=== PATIENT | female | born 1995 ===

== ENCOUNTER 2017-03-20 00:27 | Emergency (ER) | payer OTHER ==
[2017-03-20 00:36] VITALS: BP 102/63; PULSE 64; RESP 16; TEMP 98.2; O2SAT 100
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
== END 2017-03-20 02:37 | disposition home or self-care (01) ==
LOC: H.ER 00:27
DX: H57.8 Other specified disorders of eye and adnexa (principal)

== ENCOUNTER 2017-04-15 20:23 | Observation (INO) | payer OTHER ==
[2017-04-15] MEDS ORDERED: Dextrose 5%/Lactated Ringer's 1,000 ML IV SCH (21:00)
[2017-04-15] MEDS ORDERED: Lactated Ringer's 1,000 ML IV STA (21:00)
--- NOTE | 2017-04-15 21:18 | ED PDOC ---
HPI: Chest Pain Time Seen by Provider: 04/15/17 20:36 Chief Complaint (Nursing): Chest Pain Chief Complaint (Provider): Near syncope and chest pain History Per: Patient History/Exam Limitations: no limitations Onset/Duration Of Symptoms: Hrs (7) Current Symptoms Are (Timing): Better Severity: Mild Quality: "Pain" Modifying Factors: None Additional History Per: Patient Additional Complaint(s): 21 y/o female here this evening for near syncope and chest pain x7 hours. She reports that on the onset of pain she was taken to [facility] where she had labs, and was offered admission but she refused as it was too far from her home. Now she is here for further evaluation as she continues to have chest pain that is intermittent, as well as lightheadedness. No vision changes, or focal weakness. She has had a small sandwich, but nothing else today. Denies feeling hungry. She reports that she is under a significant amount of stress at work. PMD: Dr. Alas Past Medical History Reviewed: Historical Data, Nursing Documentation, Vital Signs Vital Signs: Last Vital Signs Temp 98.1 F 04/16/17 08:00 Pulse 62 04/16/17 09:00 Resp 14 04/16/17 09:00 BP 104/63 04/16/17 08:00 Pulse Ox 100 04/16/17 09:00 - Medical History PMH: Anemia Denies: Chronic Kidney Disease - Surgical History Surgical History: No Surg Hx - Family History Family History: States: Unknown Family Hx - Social History Current smoker - smoking cessation education provided: Yes Alcohol: None Drugs: Denies - Home Medications Home Medications: Ambulatory Orders Medication Instructions Recorded No Known Home Med 04/15/17 - Allergies Allergies/Adverse Reactions: Allergies Allergy/AdvReac Type Severity Reaction Status Date / Time No Known Allergies Allergy Verified 04/15/17 20:30 Review of Systems ROS Statement: Except As Marked, All Systems Reviewed And Found Negative (and as per HPI) Cardiovascular: Positive for: Chest Pain, Light Headedness Neurological: Positive for: Dizziness. Negative for: Confusion, Seizures, Altered Mental Status Physical Exam - Reviewed Nursing Documentation Reviewed: Yes Vital Signs Reviewed: Yes - Physical Exam Appears: Positive for: Non-toxic, No Acute Distress Head Exam: Positive for: ATRAUMATIC, NORMOCEPHALIC Skin: Positive for: Warm, Dry, Pallor Eye Exam: Positive for: EOMI, PERRL. Negative for: Nystagmus ENT: Negative for: Pharyngeal Erythema, Tonsillar Exudate Neck: Positive for: Painless ROM, Supple Cardiovascular/Chest: Positive for: Chest Non Tender, Bradycardia (regular rhythm) Respiratory: Positive for: Normal Breath Sounds. Negative for: Rales, Rhonchi, Wheezing Gastrointestinal/Abdominal: Positive for: Soft. Negative for: Tenderness, Distended Back: Positive for: Normal Inspection. Negative for: Vertebral Tenderness Extremity: Positive for: Normal ROM. Negative for: Pedal Edema, Deformity Lymphatic: Negative for: Adenopathy Neurologic/Psych: Positive for: Alert, resident manager II-XII (intact), Oriented (x3), Cerebellar Tests (normal). Negative for: Motor/Sensory Deficits, Aphasia, Facial Droop - Laboratory Results Result Diagrams: 04/16/17 04:45 04/16/17 04:45 - ECG ECG: Positive for: Interpreted By Me, Viewed By Me ECG Rhythm: Positive for: Normal QRS, Normal ST Segment, Sinus Rhythm (67) O2 Sat by Pulse Oximetry: 100 (RA) Pulse Ox Interpretation: Normal Medical Decision Making Medical Decision Making: Impression: Near Syncope Reviewed labs performed at [facility], which included ddimer. Pt demonstrated mild anemia and ketones in UA. No emergently significant lab abnormalities. Persistent near syncopal symptoms despite rest and PO intake. Will hospitalize for further management. IVF ordered. Plan: - EKG - Labs - CT Head [facility]3] Final Radiology Report Call: [phone] assistance Online chat: [email or web address] Patient Name: RADHIKA KAUR (Age): 1995 21 Gender: F Date of Exam: 04/15/2017 Referring Physician: Bea Desir # of Images: 256 Ordered As: CT HEAD W O CONTRAST CONFIDENTIALITY STATEMENT This report is intended only for use by the referring physician, and only in accordance with law. If you received this in error, call [phone]. Page 1 of 1 EXAM: CT Head Without Intravenous Contrast CLINICAL HISTORY: 21 years old, female; Signs and symptoms; Syncope and collapse; Patient HX: HX of anemia TECHNIQUE: Axial computed tomography images of the head/brain without intravenous contrast. All CT scans at this facility use one or more dose reduction techniques, viz.: automated exposure control; ma/kV adjustment per patient size (including targeted exams where dose is matched to indication; i.e. head); or iterative reconstruction technique. Coronal and sagittal reformatted images were created and reviewed. COMPARISON: No relevant prior studies available. FINDINGS: Brain: No intracranial hemorrhage. No mass. No definite edema. Ventricles: No hydrocephalus. Bones/joints: No acute fracture. Soft tissues: Unremarkable. Sinuses: No acute sinusitis. Mastoid air cells: No mastoid effusion. Orbits: Unremarkable as visualized. IMPRESSION: 1. No acute intracranial abnormality. Thank you for allowing us to participate in the care of your patient. Dictated and Authenticated by: Medardo Reynaga MD 04/15/2017 10:07 PM Eastern Time ([place] & [place]) Attestation Scribe Attestation: Documented by Thu Guerrero acting as a scribe for Bea Desir MD. Scribe Attestation: All medical record entries made by the Scribe were at my direction and personally dictated by me. I have reviewed the chart and agree that the record accurately reflects my personal performance of the history, physical exam, medical decision making, and the department course for this patient. I have also personally directed, reviewed, and agree with the discharge instructions and disposition. Disposition - Clinical Impression Clinical Impression: Syncope, Bradycardia Discussed With : Ashish Garcia Comment: Covering Dr Woods Doctor Will See Patient In The: ED Counseled Patient/Family Regarding: Studies Performed, Diagnosis - Disposition Disposition Time: 21:00 Condition: STABLE - Pt Status Changed To: Hospital Disposition Of: Observation - POA Present On Arrival: Falls Or Trauma
[2017-04-15 21:34] LABS: BASO % 0.4 % (0.0-2.0); EOS # 0.1 K/uL (0.0-0.7); EOS % 1.3 % (0.0-4.0); HEMATOCRIT 33.5 % (34.0-47.0); LYMPH # 2.5 K/uL (1.0-4.3); LYMPH % 34.1 % (20.0-40.0); MEAN CELL VOLUME 81.9 fl (81.0-99.0); MEAN CORPUSCULAR HEMOGLOBIN 27.9 pg (27.0-31.0); MEAN CORPUSCULAR HGB CONC 34.1 g/dL (33.0-37.0); MEAN PLATELET VOLUME 7.6 fl (7.2-11.7); MONO # 0.4 K/uL (0.0-0.8); NEUT # 4.2 K/uL (1.8-7.0); NEUT % 58.2 % (50.0-75.0); RED CELL DISTRIBUTION WIDTH 13.8 % (11.5-14.5); WHITE BLOOD COUNT 7.2 K/uL (4.8-10.8)
[2017-04-15 22:02] LABS: ALB/GLOB RATIO 1.4 (1.0-2.1); ALKALINE PHOSPHATASE 67 U/L (38-126); ALT/SGPT 27 U/L (9-52); AST/SGOT 31 U/L (14-36); BILIRUBIN,TOTAL 0.6 mg/dl (0.2-1.3); BLOOD UREA NITROGEN 7 mg/dl (7-17); CALCIUM 8.7 mg/dL (8.4-10.2); CARBON DIOXIDE 25 mmol/L (22-30); CHLORIDE 107 mmol/L (98-107); GFR AFRICAN-AMERICAN > 60; GLUCOSE,RANDOM 114 mg/dL (65-105); MAGNESIUM 1.9 MG/DL (1.6-2.3); PHOSPHOROUS 3.6 mg/dl (2.5-4.5); POTASSIUM 3.6 MMOL/L (3.6-5.0); SODIUM 142 mmol/l (132-148)
--- NOTE | 2017-04-15 22:08 | CT ---
EXAM: CT Head Without Intravenous Contrast CLINICAL HISTORY: 21 years old, female; Signs and symptoms; Syncope and collapse; Patient HX: HX of anemia TECHNIQUE: Axial computed tomography images of the head/brain without intravenous contrast. All CT scans at this facility use one or more dose reduction techniques, viz.: automated exposure control; ma/kV adjustment per patient size (including targeted exams where dose is matched to indication; i.e. head); or iterative reconstruction technique. Coronal and sagittal reformatted images were created and reviewed. COMPARISON: No relevant prior studies available. FINDINGS: Brain: No intracranial hemorrhage. No mass. No definite edema. Ventricles: No hydrocephalus. Bones/joints: No acute fracture. Soft tissues: Unremarkable. Sinuses: No acute sinusitis. Mastoid air cells: No mastoid effusion. Orbits: Unremarkable as visualized. IMPRESSION: 1. No acute intracranial abnormality.
[2017-04-15] MEDS ORDERED: Sodium Chloride 0.9% 1,000 ML IV SCH (23:45)
--- NOTE | 2017-04-15 23:53 | CP.PCM.HP ---
History of Present Illness - History of Present Illness History of Present Illness: CC: palpitations, syncope/presyncope, ?CP HPI: This is a 21 y/o female with no chronic medical conditions who comes in with several hours of chest pressure, palpitations, and multiple episodes of syncope/presyncope. Patient had been to another hospital earlier today, but elected not to be admitted there. She continued to feel poorly and so came to the ER here. States she has had syncopal symptoms in the past, several months ago but it resolved on it's own. Denies f/c/n/v/d. May be eating more poorly than usual. ROS: 14 systems reviewed, negative other than HPI MHx: None SHx: None Allergies: NKDA Medications: None Family Hx: Reviewed, no relevant findings Social Hx: Lives with family, no tobacco, no EtOH Present on Admission - Present on Admission Any Indicators Present on Admission: No Past Patient History - Past Social History Alcohol: None Drugs: Denies - CARDIAC Hx Cardiac Disorders: No - PULMONARY Hx Respiratory Disorders: No - NEUROLOGICAL Hx Neurological Disorder: No - HEENT Hx HEENT Problems: No - RENAL Hx Chronic Kidney Disease: No - ENDOCRINE/METABOLIC Hx Endocrine Disorders: No - HEMATOLOGICAL/ONCOLOGICAL Hx Anemia: Yes - INTEGUMENTARY Hx Dermatological Problems: No - MUSCULOSKELETAL/RHEUMATOLOGICAL Hx Musculoskeletal Disorders: No - GASTROINTESTINAL Hx Gastrointestinal Disorders: No - GENITOURINARY/GYNECOLOGICAL Hx Genitourinary Disorders: No - PSYCHIATRIC Hx Psychophysiologic Disorder: No Hx Substance Use: No - SURGICAL HISTORY Hx Surgeries: No - ANESTHESIA Hx Anesthesia: No Meds Allergies/Adverse Reactions: Allergies Allergy/AdvReac Type Severity Reaction Status Date / Time No Known Allergies Allergy Verified 04/15/17 20:30 Physical Exam - Constitutional Appears: No Acute Distress - Head Exam Head Exam: ATRAUMATIC, NORMOCEPHALIC - Eye Exam Eye Exam: EOMI, PERRL - ENT Exam ENT Exam: Mucous Membranes Dry - Neck Exam Neck exam: Positive for: Full Rom - Respiratory Exam Respiratory Exam: Clear to Auscultation Bilateral, NORMAL BREATHING PATTERN - Cardiovascular Exam Cardiovascular Exam: REGULAR RHYTHM, +S1, +S2 - GI/Abdominal Exam GI & Abdominal Exam: Normal Bowel Sounds, Soft - Extremities Exam Extremities exam: Positive for: full ROM, normal inspection - Neurological Exam Neurological exam: Alert, CN II-XII Intact, Oriented x3 - Psychiatric Exam Psychiatric exam: Normal Affect, Normal Mood - Skin Skin Exam: Dry, Warm Results - Vital Signs Recent Vital Signs: Last Vital Signs Temp 97.7 F 04/15/17 20:30 Pulse 69 04/15/17 22:40 Resp 16 04/15/17 22:40 BP 110/68 04/15/17 22:40 Pulse Ox 100 04/15/17 22:40 - Labs Result Diagrams: 04/15/17 21:20 04/15/17 21:20 Labs: Laboratory Results - last 24 hr 04/15/17 04/15/17 21:20 21:20 WBC 7.2 RBC 4.10 Hgb 11.4 L Hct 33.5 L MCV 81.9 MCH 27.9 MCHC 34.1 RDW 13.8 Plt Count 308 MPV 7.6 Neut % (Auto) 58.2 Lymph % (Auto) 34.1 [place] % (Auto) 6.0 Eos % (Auto) 1.3 Baso % (Auto) 0.4 Neut # 4.2 Lymph # 2.5 [place] # 0.4 Eos # 0.1 Baso # 0.0 Sodium 142 Potassium 3.6 Chloride 107 Carbon Dioxide 25 Anion Gap 13 BUN 7 Creatinine 0.5 L Est GFR ( Amer) > 60 Est GFR (Non-Af Amer) > 60 Random Glucose 114 H Calcium 8.7 Phosphorus 3.6 Magnesium 1.9 Total Bilirubin 0.6 AST 31 ALT 27 Alkaline Phosphatase 67 Troponin I < 0.0120 Total Protein 7.0 Albumin 4.1 Globulin 2.9 Albumin/Globulin Ratio 1.4 TSH 3rd Generation 0.50 - EKG Data EKG Interpreted by: Myself EKG shows normal: Sinus rhythm Rate: Normal - EKG Data EKG comments: some TWI, occasional PVCs - Imaging and Cardiology CT scan - head Status: Report reviewed by me (No significant findings) Assessment & Plan (1) Syncope Assessment and Plan: 21 y/o female with ?CP, palpitations and syncope. -Tele obs -Serial trops -AM EKG -IVF -repeat orthostatic vitals in AM -If persistent symptoms, bradycardia, pre/syncope then consider echo and cardiology consult -SCDs Status: Acute (2) Chest pain Status: Acute (3) Palpitations Status: Acute (4) DVT (deep vein thrombosis) in Status: Acute
[2017-04-16 00:29] LABS: RBC URINE 1 /hpf (0-3); URINE BILIRUBIN NEGATIVE (NEGATIVE); URINE BLOOD MODERATE (NEGATIVE); URINE COLOR STRAW (YELLOW); URINE GLUCOSE (UA) NEG (Normal); URINE KETONE NEGATIVE (NEGATIVE); URINE LEUKOCYTE ESTERASE NEG Leu/uL (Negative); URINE PROTEIN NEGATIVE (NEGATIVE); URINE UROBILINOGEN 0.2-1.0 mg/dL (0.2-1.0); WBC URINE 1 /hpf (0-5)
[2017-04-16 05:42] LABS: HEMATOCRIT 32.2 % (34.0-47.0); MEAN CELL VOLUME 83.1 fl (81.0-99.0); MEAN CORPUSCULAR HEMOGLOBIN 27.3 pg (27.0-31.0); MEAN CORPUSCULAR HGB CONC 32.8 g/dL (33.0-37.0); RED CELL DISTRIBUTION WIDTH 13.6 % (11.5-14.5); WHITE BLOOD COUNT 7.4 K/uL (4.8-10.8)
[2017-04-16 05:51] LABS: BLOOD UREA NITROGEN 6 mg/dl (7-17); CALCIUM 7.9 mg/dL (8.4-10.2); CARBON DIOXIDE 22 mmol/L (22-30); CHLORIDE 111 mmol/L (98-107); GFR AFRICAN-AMERICAN > 60; GLUCOSE,RANDOM 81 mg/dL (65-105); POTASSIUM 3.1 MMOL/L (3.6-5.0); SODIUM 142 mmol/l (132-148)
[2017-04-16] MEDS ORDERED: Potassium Chloride 20 mEq ER Tab PO ONE (06:56)
--- NOTE | 2017-04-16 08:26 | CARD ---
APPROVED REPORT EKG Measurement Heart [id number] TX [id number] <Conclusion> Sinus rhythm with marked sinus arrhythmia T wave abnormality, consider anterior ischemia Abnormal ECG
[2017-04-16 08:52] VITALS: BP 104/63; TEMP 98.1
--- NOTE | 2017-04-16 08:53 | CP.PCM.DIS ---
Provider - Provider Date of Admission: 04/15/17 23:16 Attending physician: Ashish Garcia MD Primary care physician: None Time Spent in preparation of Discharge (in minutes): 15 Hospital Course - Lab Results Lab Results: Most Recent Lab Values WBC 7.4 K/uL (4.8-10.8) 04/16/17 04:45 RBC 3.88 Mil/uL (3.80-5.20) 04/16/17 04:45 Hgb 10.6 g/dL (12.0-16.0) L 04/16/17 04:45 Hct 32.2 % (34.0-47.0) L 04/16/17 04:45 MCV 83.1 fl (81.0-99.0) 04/16/17 04:45 MCH 27.3 pg (27.0-31.0) 04/16/17 04:45 MCHC 32.8 g/dL (33.0-37.0) L 04/16/17 04:45 RDW 13.6 % (11.5-14.5) 04/16/17 04:45 Plt Count 293 K/uL (130-400) 04/16/17 04:45 MPV 7.6 fl (7.2-11.7) 04/15/17 21:20 Neut % (Auto) 58.2 % (50.0-75.0) 04/15/17 21:20 Lymph % (Auto) 34.1 % (20.0-40.0) 04/15/17 21:20 [place] % (Auto) 6.0 % (0.0-10.0) 04/15/17 21:20 Eos % (Auto) 1.3 % (0.0-4.0) 04/15/17 21:20 Baso % (Auto) 0.4 % (0.0-2.0) 04/15/17 21:20 Neut # 4.2 K/uL (1.8-7.0) 04/15/17 21:20 Lymph # 2.5 K/uL (1.0-4.3) 04/15/17 21:20 [place] # 0.4 K/uL (0.0-0.8) 04/15/17 21:20 Eos # 0.1 K/uL (0.0-0.7) 04/15/17 21:20 Baso # 0.0 K/uL (0.0-0.2) 04/15/17 21:20 Sodium 142 mmol/l (132-148) 04/16/17 04:45 Potassium 3.1 MMOL/L (3.6-5.0) L 04/16/17 04:45 Chloride 111 mmol/L (98-107) H 04/16/17 04:45 Carbon Dioxide 22 mmol/L (22-30) 04/16/17 04:45 Anion Gap 12 (10-20) 04/16/17 04:45 BUN 6 mg/dl (7-17) L 04/16/17 04:45 Creatinine 0.5 mg/dL (0.7-1.2) L 04/16/17 04:45 Est GFR ( Amer) > 60 04/16/17 04:45 Est GFR (Non-Af Amer) > 60 04/16/17 04:45 Random Glucose 81 mg/dL (65-105) 04/16/17 04:45 Calcium 7.9 mg/dL (8.4-10.2) L 04/16/17 04:45 Phosphorus 3.6 mg/dl (2.5-4.5) 04/15/17 21:20 Magnesium 1.9 MG/DL (1.6-2.3) 04/15/17 21:20 Total Bilirubin 0.6 mg/dl (0.2-1.3) 04/15/17 21:20 AST 31 U/L (14-36) 04/15/17 21:20 ALT 27 U/L (9-52) 04/15/17 21:20 Alkaline Phosphatase 67 U/L (38-126) 04/15/17 21:20 Troponin I < 0.0120 ng/mL (0.00-0.120) 04/16/17 04:45 Total Protein 7.0 G/DL (6.3-8.2) 04/15/17 21:20 Albumin 4.1 g/dL (3.5-5.0) 04/15/17 21:20 Globulin 2.9 gm/dL (2.2-3.9) 04/15/17 21:20 Albumin/Globulin Ratio 1.4 (1.0-2.1) 04/15/17 21:20 TSH 3rd Generation 0.50 mIU/ML (0.46-4.68) 04/15/17 21:20 Urine Color Straw (YELLOW) 04/16/17 00:23 Urine Clarity Clear (Clear) 04/16/17 00:23 Urine pH 8.0 (5.0-8.0) 04/16/17 00:23 Ur Specific [place] 1.009 (1.003-1.030) 04/16/17 00:23 Urine Protein Negative mg/dL (NEGATIVE) 04/16/17 00:23 Urine Glucose (UA) Neg mg/dL (Normal) 04/16/17 00:23 Urine Ketones Negative mg/dL (NEGATIVE) 04/16/17 00:23 Urine Blood Moderate (NEGATIVE) 04/16/17 00:23 Urine Nitrate Negative (NEGATIVE) 04/16/17 00:23 Urine Bilirubin Negative (NEGATIVE) 04/16/17 00:23 Urine Urobilinogen 0.2-1.0 mg/dL (0.2-1.0) 04/16/17 00:23 Ur Leukocyte Esterase Neg G[place]ell/uL (Negative) 04/16/17 00:23 Urine RBC (Auto) 1 /hpf (0-3) 04/16/17 00:23 Urine Microscopic WBC 1 /hpf (0-5) 04/16/17 00:23 Ur Squamous Epith Cells < 1 /hpf (0-5) 04/16/17 00:23 Blood Type O POSITIVE 04/15/17 21:15 Antibody Screen Negative 04/15/17 21:15 BBK History Checked No verified bt 04/15/17 21:15 - Hospital Course Hospital Course: 21 y/o female with no chronic medical conditions presented with episode of presyncopal episode after coming out of the restroom associated with upper extremity numbness sensation on her fingers and diaphoresis . She also complained of chest pressure and palpitations Patient had been to another hospital earlier today, but elected not to be admitted there. She continued to feel poorly and so came to the ER here. States she has had syncopal symptoms in the past, several months ago but it resolved on it's own. Denies f/c/n/v/d. May be eating more poorly than usual. She was placed under observation in telemetry In ER she was found to have orthostatic BP changes so was started on IVF CT head showed no acute pathology laboratory work up showed only mild anemia Hgb 10 , normal TSH and troponin - negative EKG showed T wave inversion in V1-V3 CTA chest showed no PE and Echo was reported as normal cardiology was consulted. ACS ruled out .Patient cleared for discharge Patient clinically improved, feeling better, denies any CP, SOB, QUIGLEY, palpitations, dizziness. All test results explained to patient. Most likely presyncopal episode was secondary to Vasovagal and volume depleted Will discharge patient home Counselled on good po AND FLUID INTAKE Follow up with [facility] 1. Presyncopal episode -- most likely due to volume depletion and vasovagal counselled on good PO intake follow up with [facility] 2. Chest pain - ACS ruled out Echo - normal trop - negative cardio consulted 3. Sinus arrythmias noted on EKG- non specific HR 62 TSH - controlled Counselled on reducing caffeine intake drinks and good hydration 4. Mild anemia Hgb 10.6 counselled on iron rich diet 5.Hypokalemia replaced Discharge Exam - Head Exam Head Exam: ATRAUMATIC, NORMOCEPHALIC - Eye Exam Eye Exam: EOMI, Normal appearance, PERRL Pupil Exam: NORMAL ACCOMODATION - ENT Exam ENT Exam: Mucous Membranes Moist, Normal Exam - Neck Exam Neck exam: Full Rom, Normal Inspection - Respiratory Exam Respiratory Exam: Clear to PA & Lateral, NORMAL BREATHING PATTERN. absent: Rales, Rhonchi, Wheezes - Cardiovascular Exam Cardiovascular Exam: REGULAR RHYTHM, RRR, +S1, +S2. absent: JVD - GI/Abdominal Exam GI & Abdominal Exam: Normal Bowel Sounds, Soft. absent: Distended, Guarding, Rebound, Tenderness - Rectal Exam Rectal Exam: Deferred - Extremities Exam Extremities exam: normal capillary refill, normal inspection, pedal pulses present - Back Exam Back exam: NORMAL INSPECTION - Neurological Exam Neurological exam: Alert, CN II-XII Intact, Oriented x3, Reflexes Normal - Psychiatric Exam Psychiatric exam: Normal Affect, Normal Mood - Skin Skin Exam: Dry, Intact, Normal Color, Warm Discharge Plan - Follow Up Plan Condition: STABLE Disposition: HOME/ ROUTINE Patient education suggested?: Yes Instructions: Syncope (DC) Referrals: [facility] [place] [Outside]
[2017-04-16] MEDS ORDERED: Iodixanol 320 MG/ML 100 ML BOTTLE IV ONE (09:20)
[2017-04-16] MEDS ORDERED: Sodium Chloride 0.9% 50 ML IV ONE (09:20)
--- NOTE | 2017-04-16 09:56 | RAD ---
PROCEDURE: CHEST RADIOGRAPH, 1 VIEW HISTORY: syncope, CP COMPARISON: None available. FINDINGS: LUNGS: Clear. PLEURA: No pneumothorax or pleural fluid seen. CARDIOVASCULAR: Normal. OSSEOUS STRUCTURES: No significant abnormalities. VISUALIZED UPPER ABDOMEN: Normal. OTHER FINDINGS: None. IMPRESSION: No active disease.
[2017-04-16 10:19] VITALS: PULSE 62; RESP 14; O2SAT 100
--- NOTE | 2017-04-16 10:24 | CT ---
PROCEDURE: CT Chest with contrast (Pulmonary Angiogram) HISTORY: r/o PE COMPARISON: None available. TECHNIQUE: Axial computed tomography images were obtained of the chest in the pulmonary arterial phase of enhancement. Coronal and sagittal reformatted images were created and reviewed. Intravenous contrast dose: 80 mL Visipaque 320 Radiation dose: Total exam DLP = 282.67 mGy-cm. This CT exam was performed using one or more of the following dose reduction techniques: Automated exposure control, adjustment of the mA and/or kV according to patient size, and/or use of iterative reconstruction technique. FINDINGS: PULMONARY ARTERIES: Unremarkable. No pulmonary embolism. AORTA: No acute findings. No thoracic aortic aneurysm. LUNGS: Mild dependent atelectasis in both lower lobes. No pulmonary infiltrate. No pulmonary mass. PLEURAL SPACES: Unremarkable. No effusion or pneuomothorax. HEART: Unremarkable. No cardiomegaly. No significant pericardial effusion. LYMPH NODES: No lymphadenopathy. BONES, CHEST WALL: Unremarkable. No fracture or destructive lesion OTHER FINDINGS: Mild soft tissue density in the anterior mediastinum consistent with residual thymic tissue. IMPRESSION: Unremarkable CT pulmonary angiogram. No pulmonary embolus.
--- NOTE | 2017-04-16 11:33 | CARD ---
APPROVED REPORT EXAM: Two-dimensional and M-mode echocardiogram with Doppler and color Doppler. Other Information Quality : GoodRhythm : NSR INDICATION Chest Pain 2D DIMENSIONS IVSd0.74 (0.7-1.1cm)LVDd4.16 (3.9-5.9cm) LVOT Diameter1.76 (1.8-2.4cm)PWd0.84 (0.7-1.1cm) IVSs1.17 (0.8-1.2cm)LVDs2.83 (2.5-4.0cm) FS (%) 32.0 %PWs1.10 (0.8-1.2cm) M-Mode DIMENSIONS Left Atrium (MM)3.45 (2.5-4.0cm)IVSd0.77 (0.7-1.1cm) Aortic Root2.59 (2.2-3.7cm)LVDd4.38 (4.0-5.6cm) Aortic Cusp Exc.1.90 (1.5-2.0cm)PWd0.61 (0.7-1.1cm) IVSs0.91 cmFS (%) 31 % LVDs3.01 (2.0-3.8cm)PWs0.80 cm Mitral Valve MV E Bgddpzsg41.1cm/sMV DECEL [id number] A Kuxtflzj05.5cm/s MV [id number]/A ratio1.9MVA (PHT)3.74cm2 TDI Lateral E' Peak V18.90cm/sMedial E' Peak V13.53cm/sE/Lateral E'4.4 E/Medial E'6.1 Pulmonary Valve PV Peak Hlmqtgri63.1cm/s Tricuspid Valve TR Peak Xpkmlsbm368gf/sRAP [id number] Peak Gr.14mmHg [id number] LEFT VENTRICLE The left ventricle is normal size. There is normal left ventricular wall thickness. Left ventricle systolic function is normal. The Ejection Fraction is 65-70%. There is normal LV segmental wall motion. The left ventricular diastolic function is normal. RIGHT VENTRICLE The right ventricle is normal size. There is normal right ventricular wall thickness. The right ventricular systolic function is normal. ATRIA The left atrium size is normal. The right atrium size is normal. AORTIC VALVE The aortic valve is normal in structure and function. No aortic regurgitation is present. There is no aortic valvular stenosis. MITRAL VALVE The mitral valve is normal in structure. There is no evidence of mitral valve prolapse. There is no mitral valve stenosis. Mitral regurgitation is trace. TRICUSPID VALVE The tricuspid valve is normal in structure. There is trace tricuspid regurgitation. Right ventricular systolic pressure is estimated at 24 mmHg. There is no pulmonary hypertension. PULMONIC VALVE The pulmonary valve is normal in structure and function. There is no pulmonic valvular regurgitation. GREAT VESSELS The aortic root is normal in size. The IVC was not visualized. PERICARDIAL EFFUSION The pericardium appears normal. <Conclusion> The left ventricle is normal size. There is normal left ventricular wall thickness. There is normal LV segmental wall motion. Left ventricle systolic function is normal. The Ejection Fraction is 65-70%. The left ventricular diastolic function is normal.
--- NOTE | 2017-04-16 17:33 | CARD ---
APPROVED REPORT EKG Measurement Heart [id number] <Conclusion> Normal sinus rhythm Normal ECG
--- NOTE | 2017-04-17 04:24 | CON ---
CARDIOLOGY CONSULTATION DATE: REASON FOR CONSULTATION: Chest pain and syncope. HISTORY OF PRESENT ILLNESS: The patient is a 21-year-old female who was admitted because of syncopal episode. 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 She felt dizzy and she held to the arm of co-worker, who stopped her from collapsing to the floor when she fainted. The patient does not recall anything after that, when she woke up her co-worker told that she was trembling. The patient also reported urinary incontinence, but no tongue biting. The patient has no prior history of seizure activity. The patient did report palpitation prior to the event. The patient also reporting chest pian that she is unable to characterize, but denies any blurry vision or chest discomfort. SOCIAL HISTORY: Nonsmoker. She works in [employer] business. She has 3 years old child and no had no problems with her . MENSTRUAL HISTORY: The patient finished her last menses yesterday. MEDICATIONS: The patient is on no medications at home and she does not take control pills. PHYSICAL EXAMINATION: GENERAL: The patient is a young adult female who does not appears to be in any distress at this time. VITAL SIGNS: Blood pressure 104/64, heart rate 76, temperature 98.1 and respirations 20. HEENT: Normocephalic. NECK: No JVD. CHEST: Clear. HEART: Heart sounds regular. ABDOMEN: Soft. EXTREMITIES: No edema. LABORATORY DATA: SMA-7; sodium 142, potassium 3.1, chloride 111, CO2 of 22, glucose 81, BUN 60 and creatinine 0.5. Three sets of troponins are negative. TSH level is within normal limit. Hemoglobin and hematocrit 10.6 and 32.2. White count and platelet count are within normal limit. EKG reveals sinus rhythm with anterior T wave inversion in V1 to V3. Head CT scan without contrast revealed no acute findings. Chest CT angio reveal no pulmonary embolus. Mild dependant atelectasis in both lower lobes. No pulmonary infiltrate or mass. Chest x-ray was unremarkable. ASSESSMENT: 1. Syncopal episode. 2. Chest pain, myocardial infarction is ruled out as well as pulmonary infarction. 3. Hypokalemia. 4. Rule out seizure disorder. 5. History of palpitation. CONDITIONS: Continue normal saline infusion, optimize potassium replacement, the patient was given 60 mEq of K-Dur this morning. Continue telemetry monitoring. I recommend neurology evaluation for possible seizure disorder. Neil Mahmood MD
== END 2017-04-16 12:00 | disposition home or self-care (01) ==
LOC: H.ER 20:23 → H.ERHOLD 23:16 → H.ICU/CCU 04-16 02:42
PROVIDERS: ADMIT Internal Medicine; ATTEND Internal Medicine
DX: R55 Syncope and collapse (principal); R07.9 Chest pain, unspecified; R00.2 Palpitations; I49.9 Cardiac arrhythmia, unspecified; E87.6 Hypokalemia; F17.200 Nicotine dependence, unspecified, uncomplicated; D64.9 Anemia, unspecified
CPT/HCPCS: 70450; 71010; 71275; 80048; 80053; 81003; 81025; 83735; 84100; 84443; 84484; 85025; 85027; 86850; 86900; 87081; 93005; 93306; 96360; 99285; G0378; J7040; J7120; Q9967